=== PATIENT | female | born 1970 | race Caucasian/White ===

== ENCOUNTER 2022-04-01 08:06 | Outpatient (CLI) | payer OTHER, SELFPAY ==
[2022-04-01 10:30] LABS: Albumin* 3.7 g/dL (3.3-5.0)
[2022-04-01 10:31] LABS: Chloride* 112 mmol/L (96-114); Potassium* 4.4 mmol/L (3.6-5.1); Sodium* 140 mmol/L (135-149)
[2022-04-01 10:33] LABS: Carbon Dioxide* 24 mmol/L (20-32); Cholesterol* 108 mg/dL (90-199); Creatinine* 0.7 mg/dL (0.5-1.5); Estimated Glomerular Filt Rate 105 ml/min
[2022-04-01 10:34] LABS: Alanine Aminotransferase* 30 U/L (4-35); Alkaline Phosphatase* 160 U/L (40-150); Aspartate Amino Transferase* 24 U/L (12-35); Bilirubin Total* 0.4 mg/dL (0.1-1.5); Blood Urea Nitrogen* 14 mg/dL (7-30); Calcium* 8.5 mg/dL (8.4-10.6); Glucose* 90 mg/dL (60-115); Total Protein* 5.6 g/dL (6.0-8.3); Triglycerides* 73 mg/dL (40-149)
[2022-04-01 10:35] LABS: HDL Cholesterol* 51 mg/dL (>=50); LDL Cholesterol Calculated 42 mg/dL (<100)
[2022-04-01 11:07] LABS: Vitamin D 25 Hydroxy* 21 ng/mL (30-80)
== END 2022-04-01 08:07 | disposition home or self-care (01) ==
PROVIDERS: Visit Provider Family Medicine
DX: E55.9 Vitamin D deficiency, unspecified (principal); Z13.6 Encounter for screening for cardiovascular disorders
CPT/HCPCS: 80053; 80061; 82306

== ENCOUNTER 2022-05-03 07:58 | Outpatient (CLI) | payer OTHER, SELFPAY | END 2022-05-03 07:59 | disposition home or self-care (01) | LOC: NFLDREF 05-06 10:59 | PROVIDERS: PCP Advanced Practice Midwife; Referring Provider Advanced Practice Midwife; Visit Provider Nurse Practitioner Family | DX: Z79.899 Other long term (current) drug therapy (principal) | CPT/HCPCS: 84443 ==

== ENCOUNTER 2022-10-24 07:50 | Outpatient (CLI) | payer OTHER, SELFPAY ==
--- NOTE | 2022-10-24 08:15 | MR_ITS ---
[address] [address] Phone:?[phone] Fax:?[phone] Referring Physician Information: Getachew Kennedy [address] [facility] [address] Phone:?[phone] Fax:?[phone] Patient:Jennifer Herring D.O.B:?1970 Sex:?Female Phone:?[phone] [facility] MRN:?[id number] Exam Date:?10/24/2022 EXAM: MRI of the RIGHT KNEE, without contrast CLINICAL INFORMATION: Female, 52 years old, with right knee pain and swelling. INDICATION: Evaluate for osteoarthritis or meniscal tear. PRIOR SURGERY: None reported. PLAIN FILMS: None available. COMPARISONS: No prior MRIs available. TECHNICAL INFORMATION: Using a 1.5T MR scanner and a localizing surface coil: sagittals: PD, PDFS coronals: PD, T2FS axials: PD, PDFS SEDATION: None CONTRAST: None FINDINGS: Knee joint: Effusion: Small right knee effusion. Popliteal cyst: Tiny, unruptured popliteal (Baird's) cyst. Loose bodies: None. Subcutaneous and extra-articular soft tissues: Mild anterior subcutaneous soft tissue swelling. Ligaments: ACL: Intact ACL anteromedial and posterolateral bundles, without sprain or tear. PCL: Intact PCL, without acute or chronic injury. MCL: Mild thickening involving the proximal one third of the superficial MCL, without MCL tear. LCL: Intact LCL, without injury. Posterolateral corner: No posterolateral corner soft tissue injury. Popliteus, biceps femoris, iliotibial band, popliteofibular ligament and lateral gastrocnemius are intact. Posteromedial corner: Mild semimembranosus tendinopathy with mild bursitis. Pes anserine tendons and posterior oblique ligament are without injury, tendinopathy or bursitis. Extensor mechanism: Patellar tendon: Intact, without tendinopathy. Quadriceps tendon: Intact, without tendinopathy. Retinacula: Medial and lateral retinacula are intact. Fat pads: Unremarkable infrapatellar Hoffa's, quadriceps and prefemoral fat pads. Medial compartment: Medial meniscus: Apical free edge and undersurface tearing of the anterior horn and body of the medial meniscus measuring 3.1 cm (sagittal PDFS series 6 images 20-25 and coronal STIR series 8 images 12-16). Meniscal extrusion measures 5 mm. Medial femoral condyle & tibial plateau: Generalized grade III chondromalacia of the medial compartment, with mild-moderate marginal osteophytosis and reactive osseous changes. Lateral compartment: Lateral meniscus: No articular surface, meniscosynovial junction or root tear. No displacement, extrusion or parameniscal cyst. Lateral femoral condyle & tibial plateau: Broad-based grade II chondromalacia of the central, appearing aspect of the lateral compartment, with minimal marginal cytosis. Patellofemoral joint: Patella: Generalized grade III chondromalacia of the patella, with mild marginal cytosis and reactive osseous changes. Trochlea: Broad-based grade II/III chondromalacia of the central sulcus and medial facet, with mild marginal osteophytosis. Proximal tibiofibular joint: Unremarkable, without evidence of ligament sprain injury, joint effusion or adjacent marrow edema. Bones: No stress/occult fractures or other marrow edema/pathology. IMPRESSION: 1. Apical free edge and undersurface tearing of the anterior horn and body of the medial meniscus measuring 3.1 cm, with 5 mm of meniscal extrusion. 2. 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 3. Minimal osteoarthritis of the lateral compartment. 4. Small knee joint effusion with a tiny, unruptured popliteal (Baird's) cyst. 5. Chronic sequela low-grade proximal MCL sprain, without tear. 6. Mild semimembranosus tendinopathy, with mild bursitis. 7. No ACL, PCL, or LCL sprain/tear. No lateral meniscal tear. BC Electronically signed on 10/24/2022 12:05:00 PM by Jayy Mcdaniel M.D.
== END 2022-10-24 07:51 | disposition home or self-care (01) ==
LOC: MRI 07:51
PROVIDERS: PCP Family Medicine; Visit Provider Physician Assistant Surgical
DX: M25.561 Pain in right knee (principal); M17.11 Unilateral primary osteoarthritis, right knee; S83.241A Other tear of medial meniscus, current injury, right knee, initial encounter; M25.461 Effusion, right knee; S83.411A Sprain of medial collateral ligament of right knee, initial encounter
CPT/HCPCS: 73721

== ENCOUNTER 2022-12-01 16:15 | Outpatient (RCR) | payer OTHER, SELFPAY | END 2023-01-31 15:55 | disposition home or self-care (01) | PROVIDERS: PCP Family Medicine; Visit Provider Physician Assistant Surgical | DX: S83.241A Other tear of medial meniscus, current injury, right knee, initial encounter (principal); R93.7 Abnormal findings on diagnostic imaging of other parts of musculoskeletal system; M25.561 Pain in right knee; Z51.89 Encounter for other specified aftercare | CPT/HCPCS: 97110; 97140; 97161 ==

== ENCOUNTER 2023-05-23 07:28 | Outpatient (CLI) | payer OTHER, SELFPAY | END 2023-05-23 07:29 | disposition home or self-care (01) | LOC: NFLDREF 05-26 09:26 | PROVIDERS: PCP Family Medicine; Referring Provider Family Medicine; Visit Provider Family Medicine | DX: Z01.419 Encounter for gynecological examination (general) (routine) without abnormal findings (principal); D50.9 Iron deficiency anemia, unspecified; E66.9 Obesity, unspecified; E55.9 Vitamin D deficiency, unspecified; G40.909 Epilepsy, unspecified, not intractable, without status epilepticus; F41.9 Anxiety disorder, unspecified; Z13.9 Encounter for screening, unspecified; Z98.84 Bariatric surgery status | CPT/HCPCS: 80053; 80061; 82306; 82607; 82728; 84443 ==

== ENCOUNTER 2023-09-26 15:24 | Outpatient (CLI) | payer OTHER, SELFPAY ==
--- NOTE | 2023-09-26 15:40 | CRLHL7_ITS ---
For Patients: As a result of the Century Cures Act, medical imaging exams and procedure reports are released immediately into your electronic medical record. You may view this report before your referring provider. If you have questions, please contact your health care provider. BILATERAL SCREENING MAMMOGRAM WITH COMPUTER-AIDED DETECTION AND TOMOSYNTHESIS TECHNIQUE: CC and MLO views were obtained. These mammographic images have been obtained using full-field digital technique. These mammographic images were interpreted with the benefit of computer-aided detection. Breast Tomosynthesis was used in this interpretation. COMPARISON FILM: 06/01/21, 04/16/20, 09/08/17. FINDINGS: There are scattered areas of fibroglandular density. IMPRESSION: There is no radiographic evidence for malignancy. ASSESSMENT: BI-RADS Category 1: Negative RECOMMENDATION: Routine screening mammogram in 1 year. A lay language report of this examination will be provided to the patient. Noe Craig M.D. Diagnostic Radiologist [email or web address] SP/Dictated by: Noe Craig MD @ 09/28/2023 10:24:00 AM (Electronically Signed)
== END 2023-09-26 15:25 | disposition home or self-care (01) ==
LOC: MAMMO 15:24
PROVIDERS: PCP Family Medicine; Visit Provider Family Medicine
DX: Z12.31 Encounter for screening mammogram for malignant neoplasm of breast (principal)
CPT/HCPCS: 77063; 77067

== ENCOUNTER 2023-11-21 13:02 | Outpatient (CLI) | payer OTHER, SELFPAY | END 2023-11-21 13:03 | disposition home or self-care (01) | LOC: NFLDREF 11-25 19:39 | PROVIDERS: PCP Family Medicine; Referring Provider Family Medicine; Visit Provider Family Medicine | DX: E55.9 Vitamin D deficiency, unspecified (principal); R53.83 Other fatigue | CPT/HCPCS: 82728 ==

== ENCOUNTER 2024-01-10 08:48 | Outpatient (CLI) | payer OTHER, SELFPAY | END 2024-01-10 08:49 | disposition home or self-care (01) | PROVIDERS: PCP Family Medicine; Visit Provider Family Medicine | DX: N95.0 Postmenopausal bleeding (principal) | CPT/HCPCS: 82728; 84443 ==

== ENCOUNTER 2024-01-15 14:43 | Outpatient (CLI) | payer OTHER, SELFPAY ==
--- NOTE | 2024-01-15 15:00 | CRLHL7_ITS ---
For Patients: As a result of the Century Cures Act, medical imaging exams and procedure reports are released immediately into your electronic medical record. You may view this report before your referring provider. If you have questions, please contact your health care provider. Indication: Postmenopausal bleeding Technique: transvaginal pelvic ultrasound utilizing grayscale and color flow techniques Comparison: None. Findings: Uterus: Measures 7 x 4 by 4 centimeters. No definitive cysts or masses. Endometrium: 8 millimeters in thickness. Right ovary: Not visualized secondary to atypical location, technique or bowel gas. No adnexal cysts or masses. Left ovary: Measures 2.5 x 1.5 x 2.3 centimeters and has normal color flow. No cysts or masses. Free fluid: None. Impression: 8 millimeter thickened endometrium in this postmenopausal patient - differential diagnosis to include hyperplasia and neoplasia, correlate with tissue. Dictated by Jake Canales MD @ 01/16/2024 10:14:40 AM (Electronically Signed)
== END 2024-01-15 14:44 | disposition home or self-care (01) ==
LOC: US 14:44
PROVIDERS: PCP Family Medicine; Visit Provider Family Medicine
DX: N95.0 Postmenopausal bleeding (principal); R93.89 Abnormal findings on diagnostic imaging of other specified body structures
CPT/HCPCS: 76830

== ENCOUNTER 2024-03-08 11:10 | Outpatient (RCR) | payer OTHER, SELFPAY | END 2024-05-30 10:01 | disposition home or self-care (01) | PROVIDERS: PCP Family Medicine; Visit Provider Family Medicine | DX: M25.511 Pain in right shoulder (principal); M25.611 Stiffness of right shoulder, not elsewhere classified; M79.601 Pain in right arm; Z51.89 Encounter for other specified aftercare | CPT/HCPCS: 97110; 97161 ==

== ENCOUNTER 2024-03-12 06:00 | Day surgery (SDC) | payer OTHER, SELFPAY ==
--- OUTSIDE RECORDS SUMMARY | 2024-03-12 06:02 | XMS_ITS | Continuity of Care Document ---
Author Name NwHIN User [email or web address] llowed Address Unknown Organization Unknown Address Unknown Procedures FILTER APPLIED:Only known Procedures with Onset Date within the last 5 years Procedure Date Procedure Provider Additiona l Information Status COMPREHEN METABOLIC PANEL (80471) Completed LIPID PANEL (48977) Comp leted ASSAY THYROID STIM HORMONE (82072) Completed ASSAY OF FERRITIN (23525) Completed VITAMIN B-12 (02960) Com pleted VITAMIN D 25 HYDROXY (96698) Completed PT EVAL LOW COMPLEX 20 MIN (14709) Completed THERAPEUTIC EXERCISES (00893) Completed MANUAL THERAPY 1/> REGIONS (35495) Completed C-REACTIVE PROTEIN (25833) Completed THER/PROPH/DIAG INJ IV PUSH (61857) Completed TX/PRO/DX INJ NEW DRUG ADDON (96051) Completed EMERGENCY DEPT VISIT MOD MDM (44528) Completed COMPLETE CBC W/AUTO DIFF WBC (45941) Completed CT ANGIOGRAPHY NECK (58426) Completed CT ANGIOGRAPHY HEAD (91637) Completed CT HEAD/BRAIN W/O DYE (60666) Completed ROUTINE VENIPUNCTURE (28594) Completed METABOLIC PANEL TOTAL CA (46933) Completed Encounters FILTER APPLIED:Only known Encounters with Admission Date within the last 5 years Encounter Location Admission Discharge Billing Code Manager [employer] Valorie gerber Emergency [facility] Outpatient Augie [facility] Outpatient Celia Guallpa
--- OUTSIDE RECORDS SUMMARY | 2024-03-12 06:02 | XMS_ITS | Clinical Summary ---
Author Organization [facility] Address [place], [place] [address] Care Team Providers Care Head Of Store Operations Name Role Phone Kimberly Guallpa MD Primary Care Provider + Allergies Active Allergy Reactions Criticality Noted Date Comments Lisinopril Cough,Other - Descri be In Comment Field Medium 07/05/2010 cough Nsaids (Non-Steroidal Anti-Inflammatory Drug) Other - Describe In Comment Field Medium 02/28/2018 Medications gabapentin (NEURONTIN) 300 mg capsule TAKE 1-2 TABLETS 1 HOUR BEFORE BED 1 Active medroxyPROGESTERo ne acetate, contraceptive, (Depo-Provera) injection 0 2 Active levETIRAcetam (Keppra) 1,000 mg tablet 1 Tablet (1,000 mg) 2 times daily. 0 2 Active Adderall XR 30 mg Extended-Release capsuleIndication s:Attention deficit hyperactivity disorder (ADHD) evaluation Take 1 Capsule (30 mg) by mouth once daily. Further refills will be prescribed during an in person appointment 30 Capsule 2 Active SUMAtriptan (IMITREX) 100 mg tablet TAKE 1 IMITREX + 2 ALEVE + 1 REGLAN AT HEADACHE ONSET. 2 Active metoclopramide HCl (REGLAN) 10 mg tablet TAKE 1 IMITREX + 2 ALEVE + 1 REGLAN AT DE LA TORRE ONSET 2 Active lamoTRIgine (LAMICTAL) 200 mg tabletIndications :Bipolar II disorder with rapid cycling (HC) Take 2 Tablets (400 mg) by mouth once daily. Further refills will be prescribed during an appointment 180 Tablet 3 2 Active venlafaxine (EFFEXOR) 75 mg tabletIndications :Generalized anxiety disorder,Panic disorder with agoraphobia TAKE 1/2 TABLET BY MOUTH 2 TIMES DAILY FOR 7 DAYS, THEN TAKE 1 TABLET BY MOUTH 2 TIMES DAILY. 30 Tablet 3 Active Active Problems Problem Noted Date Diagnosed Date Generalized anxiety disorder 11/04/2021 Panic disorder with agoraphobia 11/04/2021 Attention deficit hyperactivity disorder (ADHD) evaluation 07/23/2021 Controlled substance agreement signed 07/23/2021 Overview (07/23/2021): 07/23/2021, Dr Chiquita MD, Psychiatry Seizure disorder 06/21/2021 Overview (06/21/2021): Followed by [facility] Meningioma, cerebral 06/21/2021 Overview (06/21/2021): Followed by [facility], annual MRIs Morbid obesity 07/07/2020 Chronic headache disorder 07/07/2020 Symptomatic localization-related epilepsy 2020 Allergic rhinitis, cause unspecified 05/02/2006 Unspecified asthma(493.90) Bipolar II disorder with rapid cycling Migraine, unspecified, witho ut mention of intractable migraine without mention of status migrainosus Other specified temporomandibular joint disorder s Psychophysiological insomnia Encounters Date Type Department Care Team Description 01/23/2024 Lab Requisition [facility] [phone] Janine Jain MD from Last 3 Months Immunizations Name Administration Dates Next Due DTaP 04/14/2005,04/04/2005 Influenza A (H1N1), Inactivated 12/25/2008 Influenza Virus, Unspecified 11/21/2008,04/01/19 09,02/12/2007,04/13/2006 Influenza, IIV3 (Age 6-35 mos) 02/11/2014,2011,11/24/2010,01/05/2010 Influenza, IIV3 (Age >=3 years) 02/11/2011,02/12,04/13/2006 Influenza, IIV4 12/04/2019, 9,12/13/2017,04/18/2017, 12/25/2008 Td (Age >=7 Years) 04/24/1996 Tdap 10/27/2016,04/14/2005 Family History Medical History Relation Name Comments Anemia Father Kidney disease Father Other Maternal Grandfather Cancer-breast Maternal Grandmother Heart Disease Maternal Grandmother Anemia Mother Asthma Sister Anxiety disorder Son Noah Depression Son Noah Relation Name Status Comments Father Maternal Grandfather Maternal Grandmother Mother Sister Son Noah Alive Social History Tobacco Use Types Packs/Day Years Used Date Smoking Tobacco: Never Smokeless Tobacco: Never Tobacco Cessation:Counseling Given: Yes Comments:never Alcohol Use Standard Drinks/Week Comments Not Currently 0 (1 standard drink = 0.6 oz pure alcohol) not since 2018. Used to drink a glass of wine a few times a year. Last time drank 5 drinks or more was in her 20s. PHQ-2 Answer Date Recorded PHQ-2 TOTAL SCORE 2 11/12/2021 Social Connections Answer Date Recorded Frequency of Communication with Friends and Fami ly Not on file 06/21/2021 Alcohol Use Answer Date Recorded How often do you have a drink containing alcohol ? 0 09/03/2021 Average Number of Drinks Not on file 022 Frequency of Binge Drinking Not on file 09/2021 Education Answer Date Recorded What is the highest level of school you have completed or the highest degree you have received? 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 on file Not on file Not on file Obstetrics History Para Term AB IAB SAB Ectopic Multiple Livin g Live Births 2 2 Date Outcome GA Total Labor Labor/2nd/3rd Weight Sex Type Anes PTL Natasha A1 A5 Name Clin Para Para Last Filed Vital Signs Vital Sign Reading Time Taken Comments Blood Pressure 129/86 11/04/2021 7:39 AM CDT Pulse 92 11/04/2021 7:39 AM CDT Temperature 36.9 C (98.4 F) 07/20/2006 5:30 PM CDT Respiratory Rate - - Oxygen Saturation 97% 09/21/2021 2:50 PM CDT Inhaled Oxygen Concentration - - Weight 113.4 kg (250 lb) 11/04/2021 7:39 AM CDT Height 165.1 cm (5' 5) 07/07/2006 9:00 AM CDT Body Mass Index - - Plan of Treatment Health Maintenance Due Date Last Done Comments HIV for age 15-65 1986 BMI (ht and wt on same day) for age 18+ 1989 Hepatitis C screening for age 18-79 1989 Colonoscopy through age 75 2016 Lipids for age 45-75 2016 Mammogram for age 45-75 2016 Zoster (shingles) series for age 50+ (1 of 2) 2021 Depression screening for age 12+ 11/15/2022 11/15/2021, 11/12/2021, 11/11/2021, Additional history exists COVID-19 vaccine series (2023- season) 2023 06/30/2020, 06/09/2020 Influenza for age 50-64 10/29/2023 12/04/19 20, 11/28/2018, 12/13/2017, Additional history exists Pap test for age 21-65 04/19/2025 , 04/19/2022, 11/15/2017, Additional history exists Tetanus booster 10/27/2026 10/27/2016, 03/30, 04/24/1996 Tdap Completed 10/27/2016, 04/14/2005 Pneumococcal series for age 6-49 Aged Out No longer eligible based on patient's age to complete this topic Procedures Procedure Name Priority Date/Time Associated Diagnosis Comments LAB TRACKING EVENT Routine 01/22/2024 3: 15 PM BRISKET PULLER PATH TISSUE EXAM Routine 01/22/2024 3:15 PM BRISKET PULLER HARPSICHORD MAKER THIN PREP PAP SCREEN IMAGED Routine 04/19/2022 11:05 AM BRISKET PULLER from Last 3 Months or Most Recently Relevant to Health Maintenance Results * LAB TRACKING EVENT (01/22/2024 3:15 PM BRISKET PULLER) Other (Other) Client Collect / Unknown 01/22/2024 3:15 PM BRISKET PULLER 01/23/2024 2:00 PM BRISKET PULLER us Janine Jain MD LAB BILL ONLY Final Re [facility] [address] [place] [address], * PATH TISSUE EXAM (01/22/2024 3:15 PM BRISKET PULLER) Case Report Pathology Report Case: [id number] Authorizing Provider: Janine Jain MD Collected: 01/22/2024 1515 Ordering Location: [facility] Received: 01/23/2024 1828 Pathologist: Su Mcdonald MD Specimen: Endometrial Biopsy 01/26/2024 5:13 PM BRISKET PULLER [facility] [employer] [facility] Final Diagnosis A) ENDOMETRIUM, BIOPSY: 1. Inactive endometrium 2. Negative for chronic endometritis 3. Negative for hyperplasia, atypia, and malignancy 01/26/2024 5:13 PM BRISKET PULLER [facility] [employer] [facility] Comment Case seen in consultation with Dr. Rodriguez. 01/26/2024 5:13 PM BRISKET PULLER [facility] Clinical Information 53-year-old with postmenopausal bleeding. Stopped upper about 1.5 years ago. Never got a cycle after stopping and now all of a sudden bleeding again. 01/26/2024 5:13 PM BRISKET PULLER [facility] Gross Description A) Received in formalin, labeled with the patient's name and endometrial BX, is a 0.7 x 0.5 x 0.2 cm aggregate of blood tinged mucous. The specimen is entirely submitted in 1 cassette. JPW 01/23/2024 01/26/2024 5:13 PM BRISKET PULLER [facility] Microscopic Description The final diagnosis is based on microscopic examination of appropriate sections of all specimens. 01/26/2024 5:13 PM BRISKET PULLER [facility] Additional Information Interpreted at [facility] - [address] [place] [address] [address] [facility] [address] [address] 01/26/2024 5:13 PM BRISKET PULLER [facility] Other (Endometrial Biopsy) 01/22/2024 3:15 PM BRISKET PULLER 01/23/2024 6:25 PM BRISKET PULLER Janine Jain MD PATHOLOGY/CYTOLOGY Final Result [facility] [address] [place] [address], * HARPSICHORD MAKER THIN PREP PAP SCREEN IMAGED (04/19/2022 11:05 AM BRISKET PULLER) Case Report Gynecologic Cytology Report Case: [id number] Authorizing Provider: Unknown, Doctor Collected: 04/19/2022 1105 Ordering Location: [facility] Received: 04/20/2022 1718 First Screen: Corrine Rodriguez Specimen: HARPSICHORD MAKER ThinPrep Vial Screening, Cervical/Vaginal 05/10/2022 12:44 PM CDT [facility] INTERPRETATION/ RESULT NEGATIVE FOR INTRAEPITHELIAL LESION OR MALIGNANCY (NIL) (none) 05/10/2022 12:44 PM CDT [facility] IMEN ADEQUACY Satisfactory for evaluation No endocervical component seen 05/10/2022 12:44 PM CDT [facility] HPV REQUEST HPV and PAP 05/10/2022 12:44 PM CDT [facility] Additional Information 05/10/2022 12:44 PM CDT [facility] Comment: Interpreted at [facility] - [address] [facility] [place] [address] Automated Review Successful 05/10/2022 12:44 PM CDT [facility] Comment:Specimen processed s uccessfully by automated director of institutional research device, ThinPrep Imaging System, [employer] ANCILLARY TESTING HARPSICHORD MAKER HPV Ordered, Please see separate report 05/10/2022 12:44 PM CDT [facility] Note The pap test is a screening technique, not a diagnostic procedure. It is used primarily to screen for squamous cancers and precursor lesions. Published studies have shown that it is subject to both false negative and false positive results. The pap test should not be used as the sole means to diagnose or exclude pre-malignant and malignant lesions. 05/10/2022 12:44 PM CDT [facility] Other (Cervical/Vagina l) 04/19/2022 11:05 AM BRISKET PULLER 04/20/2022 5:18 PM BRISKET PULLER us Kimberly Guallpa MD PATHOLOGY/CYTOLOGY Final Result [facility] [address] [place] [address], [place] from Last 3 Months or Most Recently Relevant to Health Maintenance Insurance [facility] Care Teams Head Of Store Operations Relationship Specialty Start Date End Date Kimberly Guallpa MD [address] [place] [address] PCP - General Family Practice 06/19/18
--- OUTSIDE RECORDS SUMMARY | 2024-03-12 06:02 | XMS_ITS | Referral Summary ---
Author Organization [facility] Address [address] [place] [address] Care Team Providers Care Hat Blocking Operator Name Role Phone Kimberly Guallpa MD Primary Care Provider + Allergies Active Allergy Reactions Criticality Noted Date Comments Lisinopril Cough 05/15/2018 Medications levETIRAcetam (KEPPRA) 500 MG tablet Take 500 mg by mouth 2 times daily Active HYDROcodone-acet aminophen (NORCO) 5-325 MG tablet Take 1 tablet by mouth every 6 hours as needed for severe pain Active escitalopram (LEXAPRO) 20 MG tablet Take 20 mg by mouth daily Active amphetamine-dext roamphetamine (ADDERALL XR) 30 MG 24 hr capsule Take 30 mg by mouth daily Active Social History Tobacco Use Types Packs/Day Years Used Date Smoking Tobacco: Never Alcohol Use Standard Drinks/Week Comments No 0 (1 standard drink = 0.6 oz pur e alcohol) AUDIT-C Answer Date Recorded Frequency of Alcohol Consumption Never 05/15/2018 Average Number of Drinks Not on file 019 Frequency of Binge Drinking Not on file 04/27 Comments No Sex and Gender Information Value Date Recorded Sex Assigned at Not on file 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 Gender Identity Not on file Sexual Orientation Not on file Last Filed Vital Signs Vital Sign Reading Time Taken Comments Blood Pressure 126/71 05/15/2018 3:49 PM CDT Pulse 72 05/15/2018 3:49 PM CDT Temperature 37.2 C (99 F) 05/15/2018 1:26 PM CDT Respiratory Rate 16 05/15/2018 1:26 PM CDT Oxygen Saturation 99% 05/15/2018 3:50 PM CDT Inhaled Oxygen Concentration - - Weight 102.9 kg (226 lb 13.7 oz) 05/15/2018 1:26 PM CDT Height 165.1 cm (5' 5) 05/15/2018 1:26 PM CDT Body Mass Index 37.75 05/15/2018 1:26 PM CDT Plan of Treatment Not on file Care Teams Hat Blocking Operator Relationship Specialty Start Date End Date Kimberly Guallpa MD [facility] & [address] [address] PCP - General Family Practice 05/15/18
--- OUTSIDE RECORDS SUMMARY | 2024-03-12 06:02 | XMS_ITS | Clinical Summary ---
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
[2024-03-12 06:11] VITALS: BMI 35.5
[2024-03-12 06:29] LABS: Ur HCG Qualitative* Negative (Negative)
[2024-03-12 06:35] VITALS: BP 120/80; PULSE 72; RESP 16; TEMP 36.6; O2SAT 97
[2024-03-12 06:35] LABS: Hemoglobin* 10.4 gm/dL (12.0-16.0)
[2024-03-12] MEDS: 0.9 % SODIUM CHLORIDE 500 ML 500 ML 100 ML IV (06:38)
--- NOTE | 2024-03-12 07:14 | W.PM.H&PU ---
History & Physical Update History & Physical Update H&P Reviewed and patient assessed: No changes noted H&P Updates: Ms. Herring is seen in pre-op prior to planned hysteroscopy, dilation and curettage with TruClear. No interval change to her health history or questions today. We again reviewed the risks, benefits and alternatives to the planned procedure. Written consent was re-signed. Post-procedure restrictions and expectations reviewed. Pre-op labs reviewed and are within normal limits aside from mild anemia, possibly secondary to iron deficiency in the setting of val-en-y. No perioperative antibiotics indicated. No allergy to NSAIDs, but rather patient avoids them due to val-en-Y discussed that IV toradol may still be utilized in this setting. Recommend tylenol scheduled for post-op pain, will send 5 tablets of tramadol for breakthrough pain as she cannot take NSAIDs orally.
--- NOTE | 2024-03-12 07:19 | W.PM.GYNPROC ---
Procedure Note Time Seen by Provider: 07:50 Date of procedure: 03/12/24 Will [facility] bill your pro fee for this procedure?: Yes Pre-op diagnosis: Postmenopausal bleeding Procedure: Hysteroscopy, dilation and curettage with TruClear Anesthesia: MAC Complications: None Surgeon: Leah Jain MD Estimated blood loss (mL): 5 IV fluids (mL): 300 Urine Output (mL): 10 Pathology: specimen obtained, sent to pathology Condition: stable Disposition: same day Findings: Unremarkable external genital exam Bicornuate uterine cavity Mildly proliferative appearing endometrial cavity No focal uterine anomalies Unremarkable bilateral tubal ostia Procedure Description: Patient was taken to the operating room with IV running. She was positioned in dorsal lithotomy position with her legs fully supported in Yellofin stirrups. Monitored anesthesia care was administered. She was prepped and draped in the usual sterile fashion. Exam under anesthesia was performed for the above-noted findings. Speculum was inserted. Cervix visualized and grasped along the anterior lip with a single-tooth tenaculum. Paracervical block was performed with a total of 20mL of 0.5% bupivacaine. Cervix was serially dilated to accommodate the TRUCLEAR hysteroscope. This was assembled with saline inflow and outflow in place. The line was flushed of bubbles. The hysteroscope was advanced through the cervix into the endometrial cavity for the above noted findings. The tissue morcellator was then inserted through the operating channel. Window lock was performed. Under direct visualization, the endometrial cavity was circumferentially curetted with the tissue morcellator. The hysteroscope and morcellator were then removed from the uterus. Tenaculum was removed from the anterior lip of cervix. Hemostasis was noted. Patient tolerated procedure well. She was taken to recovery area in stable condition.
[2024-03-12] MEDS: BUPIVACAINE 0.5% 30 ML INJECTION (07:40)
--- NOTE | 2024-03-12 07:57 | P.ANES_ITS ---
Anesthesia Charges Start Date/Time Anesthesia Start Date: 03/12/24 Anesthesia Start Time: 07:16 Stop Date/Time Anesthesia Stop Date: 03/12/24 Anesthesia Stop Time: 07:57 Coding CPT Codes CPT Codes: ANESTH HYSTEROSCOPE/GRAPH - 47264 ([id number]) P2 - PATIENT W/MILD SYST DISEASE, QK - DIGITAL ARTIST 2-4 CNCRNT ANES PROC, QX - PODIATRIC PHYSICIAN SVC W/ MD MED DIRECTION
--- NOTE | 2024-03-12 07:57 | W.ANESCHARGE ---
Anesthesia Charges Start Date/Time Anesthesia Start Date: 03/12/24 Anesthesia Start Time: 07:16 Stop Date/Time Anesthesia Stop Date: 03/12/24 Anesthesia Stop Time: 07:57 Coding CPT Codes CPT Codes: ANESTH HYSTEROSCOPE/GRAPH - 54746 ([id number]) P2 - PATIENT W/MILD SYST DISEASE, QK - SPORTS MARKETING SPECIALIST 2-4 CNCRNT ANES PROC, QX - PLASTIC FABRICATOR SVC W/ MD MED DIRECTION
[2024-03-12 08:00] VITALS: BP 119/75; PULSE 61; RESP 12; TEMP 36.4; O2SAT 98
[2024-03-12 08:15] VITALS: BP 121/58; PULSE 67; RESP 12; O2SAT 97
[2024-03-12] MEDS: ACETAMINOPHEN 500 MG TABLET 1000 MG PO (08:20)
[2024-03-12 08:30] VITALS: BP 110/70; PULSE 66; RESP 16; TEMP 36.8; O2SAT 100
[2024-03-12 09:00] VITALS: BP 119/57; PULSE 68; RESP 16; O2SAT 99
--- NOTE | 2024-03-12 09:35 | P.ANES_ITS ---
Anesthesia Charges Start Date/Time Anesthesia Start Date: 03/12/24 Anesthesia Start Time: 07:16 Stop Date/Time Anesthesia Stop Date: 03/12/24 Anesthesia Stop Time: 07:57 Coding CPT Codes CPT Codes: ANESTH HYSTEROSCOPE/GRAPH - 60099 ([id number]) QK - ICT ACCOUNT MANAGER 2-4 CNCRNT ANES PROC, QX - CLINICAL QUALITY ASSURANCE SPECIALIST SVC W/ MD MED DIRECTION, P2 - PATIENT W/MILD SYST DISEASE
--- NOTE | 2024-03-12 09:35 | W.ANESCHARGE ---
Anesthesia Charges Start Date/Time Anesthesia Start Date: 03/12/24 Anesthesia Start Time: 07:16 Stop Date/Time Anesthesia Stop Date: 03/12/24 Anesthesia Stop Time: 07:57 Coding CPT Codes CPT Codes: ANESTH HYSTEROSCOPE/GRAPH - 24512 ([id number]) QK - DOGGER 2-4 CNCRNT ANES PROC, QX - FISCAL MANAGER SVC W/ MD MED DIRECTION, P2 - PATIENT W/MILD SYST DISEASE
== END 2024-03-12 09:50 | disposition home or self-care (01) ==
PROVIDERS: PCP Family Medicine; Visit Provider Obstetrics & Gynecology
PROC: 0UDB8ZZ Extraction of Endometrium, Via Natural or Artificial Opening Endoscopic (ICD-10-PCS; CPT 58558; principal; 2024-03-12 07:15)
DX: N95.0 Postmenopausal bleeding (principal); D50.9 Iron deficiency anemia, unspecified; Z98.84 Bariatric surgery status
CPT/HCPCS: 58558; 00952; 36415; 81025; 85018; 86850; 86900; 86901; 88305; A9270; C1782; J0665; J1100; J1885; J2405; J2704; J3010; J7030

== ENCOUNTER 2024-05-20 07:30 | Outpatient (CLI) | payer OTHER, SELFPAY | END 2024-05-20 07:31 | disposition home or self-care (01) | LOC: NFLDREF 05-21 05:36 | PROVIDERS: PCP Family Medicine; Referring Provider Family Medicine; Visit Provider Family Medicine | DX: D64.9 Anemia, unspecified (principal); E55.9 Vitamin D deficiency, unspecified; E53.8 Deficiency of other specified B group vitamins; Z98.84 Bariatric surgery status; Z13.29 Encounter for screening for other suspected endocrine disorder | CPT/HCPCS: 80053; 82306; 82607; 82728; 83540; 83550; 84443 ==

== ENCOUNTER 2024-06-14 10:15 | Outpatient (RCR) | payer OTHER, SELFPAY ==
--- NOTE | 2024-05-28 13:37 | ONC.NURNOTE ---
Iron deficiency anemia
--- NOTE | 2024-05-28 14:00 | URNOTE ---
PA not required for Mona ([id number]) per [employer]. Call ref #[id number]
[2024-05-30 08:58] VITALS: BP 142/85; PULSE 86; RESP 22; TEMP 36.8; O2SAT 99
[2024-05-30] MEDS: SODIUM CHLORIDE 0.9 % (FLUSH) 10 ML SYRINGE IVF (10:32)
[2024-05-30 11:01] VITALS: BP 126/81; PULSE 65; RESP 15; TEMP 36.6; O2SAT 96
[2024-06-04 07:53] VITALS: BP 139/84; PULSE 87; RESP 22; TEMP 36.4; O2SAT 99
[2024-06-04] MEDS: SODIUM CHLORIDE 0.9 % (FLUSH) 10 ML SYRINGE IVF ×2 (08:35→09:06)
[2024-06-04 09:05] VITALS: BP 127/79; PULSE 76; RESP 16; O2SAT 99
[2024-06-04 09:35] VITALS: BP 124/71; PULSE 81; RESP 16; O2SAT 97
[2024-06-07 11:00] VITALS: BP 133/85; PULSE 67; RESP 18; TEMP 36.8; O2SAT 99
[2024-06-07] MEDS: SODIUM CHLORIDE 0.9 % (FLUSH) 10 ML SYRINGE IVF (11:28)
[2024-06-07 12:15] VITALS: BP 116/65; PULSE 62; RESP 18; O2SAT 100
[2024-06-12 10:47] VITALS: BP 143/85; PULSE 79; RESP 18; TEMP 34.4; O2SAT 96
[2024-06-12] MEDS: SODIUM CHLORIDE 0.9 % (FLUSH) 10 ML SYRINGE IVF (11:28)
[2024-06-12 12:15] VITALS: BP 126/86; PULSE 62; RESP 18; O2SAT 98
[2024-06-14 10:30] VITALS: BP 129/86; PULSE 76; RESP 20; TEMP 36.1; O2SAT 98
[2024-06-14] MEDS: SODIUM CHLORIDE 0.9 % (FLUSH) 10 ML SYRINGE IVF ×2 (10:45→11:07)
[2024-06-14 11:07] VITALS: BP 115/69; PULSE 71; RESP 16; O2SAT 98
== END 2024-11-26 23:59 | disposition home or self-care (01) ==
LOC: CCIC 10:15
PROVIDERS: PCP Family Medicine; Visit Provider Clinical Nurse Specialist
DX: D50.9 Iron deficiency anemia, unspecified (principal)
CPT/HCPCS: 96365; 96374; J1756; J7050

== ENCOUNTER 2024-06-28 08:29 | Outpatient (CLI) | payer OTHER, SELFPAY | END 2024-06-28 08:30 | disposition home or self-care (01) | LOC: NFLDREF 07-03 18:53 | PROVIDERS: PCP Family Medicine; Referring Provider Family Medicine; Visit Provider Family Medicine | DX: D50.8 Other iron deficiency anemias (principal) | CPT/HCPCS: 82728; 83540; 83550 ==

== ENCOUNTER 2024-11-04 07:30 | Outpatient (CLI) | payer OTHER, SELFPAY | END 2024-11-04 07:31 | disposition home or self-care (01) | LOC: NFLDREF 11-06 16:52 | PROVIDERS: PCP Family Medicine; Referring Provider Family Medicine; Visit Provider Family Medicine | DX: D50.8 Other iron deficiency anemias (principal); E55.9 Vitamin D deficiency, unspecified | CPT/HCPCS: 82306; 82728 ==